=== PATIENT | female | born 1975 | race Caucasian/White ===

== ENCOUNTER 2021-02-05 08:16 | Emergency (ER) | payer OTHER ==
[~2021-02-05] VITALS: Ht 170 cm; Wt 115.0 kg
[2021-02-05 08:56] LABS: CLARITY,URINE CLOUDY; COLOR,URINE YELLOW; PROTEIN,URINE NEGATIVE (NEGATIVE)
[2021-02-05 08:57] LABS: BACTERIA,URINE LARGE /HPF; BILIRUBIN,URINE NEGATIVE (NEGATIVE); GLUCOSE, URINE (UA) 3+ (NEGATIVE); KETONES,URINE NEGATIVE (NEGATIVE); LEUKOCYTE ESTERASE ,URINE NEGATIVE (NEGATIVE); NITRITE,URINE POSITIVE (NEGATIVE); SQUAMOUS EPITHELIAL CELL,UR 0-2 /HPF
[2021-02-05] MEDS ORDERED: TETANUS,DIPTH,PERTUSS P/F (BOOSTRIX) 0.5 ML VIAL IM ONE ×2 (09:00→09:15)
--- NOTE | 2021-02-05 09:27 | Diagnostic Imaging Report ---
INDICATION: Fall and right shoulder pain. Time of exam: 8:44 AM 3 views of the right shoulder were obtained. Glenohumeral and acromioclavicular alignment are normal. Acromiohumeral space is normal. No fracture or dislocation is identified. IMPRESSION: No acute abnormality is detected. Dictated by: Dictated on workstation # [id number]
--- NOTE | 2021-02-05 09:28 | Diagnostic Imaging Report ---
INDICATION: Fall and right arm pain. Time of exam 8:47 AM 2 views right humerus demonstrates normal alignment at the shoulder and elbow. The humerus is intact. No fracture is identified. IMPRESSION: No acute bony abnormality is detected. Dictated by: Dictated on workstation # [id number]
[2021-02-05 09:30] VITALS: BP 140/62
--- NOTE | 2021-02-05 09:35 | ED Upper Extremity ---
General Chief Complaint: Upper Extremity Stated Complaint: FALL; RT SHOULDER PAIN/HAND NUMBNESS Nursing Triage Note: PT FELL YESTERDAY ON SOME LOOSE GRAVEL AND NOW HER RIGHT SHOULDER HURTS. SHE IS ABLE TO MOVE IT BUT HER FINGERS FEEL NUMB. Nursing Sepsis Screen: No Definite Risk Source: patient Exam Limitations: no limitations History of Present Illness Date Seen by Provider: Feb 05, 2021 Time Seen by Provider: 08:15 Initial Comments Patient is a 45-year-old right-handed female who presents with right shoulder sprain and injury. Patient fell yesterday morning while walking and scraped her left knee she cut herself with her right arm prior to falling. She reports pain tenderness over her right trapezius muscle shoulder and arm. She is able to move her arm without difficulty. She did not hit her head and denies midline neck pain but does report tingling in her right hand. She has no motor weakness and denies headache. She reports ongoing dysuria which she has been treating infection. No fevers chills, nausea vomiting or sweats. No flank pain. No hematuria or history of kidney stones. She is unsure of status. No other acute symptoms or complaints. Onset: yesterday Pain/Injury Location: right shoulder, right arm Method of Injury: fell, twisted Modifying Factors: Improves With Other Allergies and Home Medications Allergies Coded Allergies: penicillin G (Verified Allergy, Unknown, 02/05/21) Patient Home Medication List Home Medication List Reviewed: Yes Review of Systems Constitutional: see HPI EENTM: see HPI Respiratory: see HPI Cardiovascular: see HPI Gastrointestinal: see HPI Genitourinary: see HPI : Yes Musculoskeletal: see HPI Skin: see HPI Psychiatric/Neurological: See HPI Past [id number] Hx Patient Social History Alcohol Use: Denies Use Recent Infectious Disease Expo: No Recent Hopitalizations: No Seasonal Allergies Seasonal Allergies: Yes Past Medical History Gallbladder Respiratory: No Cardiac: Yes High Cholesterol, Hypertension Neurological: Yes Neuropathy Genitourinary: No Gastrointestinal: No Musculoskeletal: No Endocrine: Yes Diabetes, Insulin dep Are Your Blood Sugars Over 250: No HEENT: No Cancer: No Psychosocial: No Integumentary: No Blood Disorders: No Physical Exam Vital Signs Vital Signs - First Documented 02/05/21 08:20 Temp 36.1 Pulse 101 Resp 18 B/P (MAP) 159/78 (105) Pulse Ox 98 O2 Delivery Room Air Capillary Refill : Less Than 3 Seconds Height, Weight, BMI Height: '" Weight: lbs. oz. kg; 39.00 BMI Method: General Appearance: WD/WN, no apparent distress, other (Anxious) HEENT: PERRL/EOMI, normal ENT inspection Neck: supple, tender lateral; No tender midline; other (No midline tenderness) Cardiovascular: normal peripheral pulses Respiratory: lungs clear Gastrointestinal: soft Shoulder: normal ROM; No bone tenderness, No deformity; pain (Right shoulder), soft tissue tenderness Elbow/Forearm: normal inspection Wrist: Yes normal inspection Hand: normal inspection, non-tender Neurologic/Psychiatric: patient carrier II-XII nml as tested, no motor/sensory deficits, oriented x 3 Skin: other (Abrasion left knee) Progress/Results/Core Measures Results/Orders Lab Results Laboratory Tests Test 02/05/21 08:35 Range/Units Urine Color YELLOW Urine Clarity CLOUDY Urine pH 6.0 5-9 Urine Specific [place] 1.025 H 1.016-1.022 Urine Protein NEGATIVE NEGATIVE Urine Glucose (UA) 3+ H NEGATIVE Urine Ketones NEGATIVE NEGATIVE Urine Nitrite POSITIVE H NEGATIVE Urine Bilirubin NEGATIVE NEGATIVE Urine Urobilinogen 0.2 < = 1.0 MG/DL Urine Leukocyte Esterase NEGATIVE NEGATIVE Urine RBC (Auto) NEGATIVE NEGATIVE Urine RBC NONE /HPF Urine WBC 10-25 H /HPF Urine Squamous Epithelial Cells 0-2 /HPF Urine Crystals NONE /LPF Urine Bacteria LARGE H /HPF Urine Casts NONE /LPF Urine Mucus NEGATIVE /LPF Urine Culture Indicated YES My Orders Orders - KARISHMA DENSON DO Urine Bedside (02/05/21 08:33) Ua Culture If Indicated (02/05/21 08:33) Shoulder 3 View Right (02/05/21 08:34) Humerus 2 View Right (02/05/21 08:34) Urine Culture (02/05/21 08:35) Dipht,Pertuss(Acell),Tet Adult (Boostrix (02/05/21 09:00) Dipht,Pertuss(Acell),Tet Adult (Boostrix (02/05/21 09:15) Urine Bedside (02/05/21 09:27) Medications Given in ED Current Medications Medications Dose Ordered Sig/Farhan Route Start Time Stop Time Status Last Admin Dose Admin Diphtheria/ Tetanus/Acell Pertussis 0.5 ml ONCE ONCE IM 02/05/21 09:15 02/05/21 09:16 DC 02/05/21 09:01 0.5 ML Vital Signs/I&O 02/05/21 08:20 Temp 36.1 Pulse 101 Resp 18 B/P (MAP) 159/78 (105) Pulse Ox 98 O2 Delivery Room Air Blood Pressure Mean: 105 Departure Communication (Admissions) Right shoulder/arm: No obvious displaced fracture per radiology report Tetanus updated. Urine negative. Will treat for trapezius muscle sprain, urinary tract infection and possible yeast infection. PCP follow-up recommended. Return precautions reviewed. Patient verbalizes understanding agreement discharge instructions prior to departure. Impression Primary Impression: Trapezius muscle strain Additional Impressions: Urinary tract infection Yeast infection Disposition: HOME, SELF-CARE Condition: Stable Departure-Patient Inst. Decision time for Depature: 09:34 Referrals: NO,LOCAL PHYSICIAN (PCP/Family) Primary Care Physician Patient Instructions: Muscle Strain ED, Cervical Muscle Strain (DC), Urinary Tract Infections in Adults Add. Discharge Instructions: Please wear arm sling. Take ibuprofen for pain and tramadol and Flexeril as needed for additional relief. Complete full course of antibiotics and take Diflucan as needed for yeast infection. Follow-up with local PCP for reevaluation if symptoms persist. Return to the ED if new or worsening symptoms. All discharge instructions reviewed with patient and/or family. Voiced understanding. Scripts Fluconazole (Diflucan) 150 Mg Tablet 100 MG PO DAILY PRN PRN for ITCHING, #2 TAB Prov: KARISHMA DENSON DO 02/05/21 Sulfamethoxazole/Trimethoprim (Bactrim Ds Tablet) 1 Each Tablet 1 EACH PO BID, #14 TAB Prov: KARISHMA DENSON DO 02/05/21 Cyclobenzaprine HCl (Cyclobenzaprine HCl) 10 Mg Tablet 10 MG PO Q8H PRN for SPASMS, #15 TAB 0 Refills Prov: KARISHMA DENSON DO 02/05/21 Tramadol HCl (Tramadol HCl) 50 Mg Tablet 50 MG PO Q6H PRN for PAIN for 5 Days, #14 TAB 0 Refills Prov: KARISHMA DENSON DO 02/05/21 KARISHMA DENSON DO Feb 05, 2021 09:35
[2021-02-05] MEDS ORDERED: TRM50T PO (09:38)
[2021-02-05] MEDS ORDERED: FLUC150T PO (09:38)
[2021-02-05] MEDS ORDERED: SULF1TAB35 PO (09:38)
[2021-02-05] MEDS ORDERED: CYCL10TA9 PO (09:38)
== END 2021-02-05 09:40 | disposition home or self-care (01) ==
LOC: ER FS 08:18
DX: S29.012A Strain of muscle and tendon of back wall of thorax, initial encounter (principal); S80.212A Abrasion, left knee, initial encounter; N39.0 Urinary tract infection, site not specified; E11.9 Type 2 diabetes mellitus without complications; I10 Essential (primary) hypertension; Z23 Encounter for immunization; X50.1XXA Overexertion from prolonged static or awkward postures, initial encounter
CPT/HCPCS: 73030; 73060; 81000; 84703; 87077; 87088; 87186; 90715